=== PATIENT | female | born 1995 | race Caucasian/White ===

== ENCOUNTER 2017-11-19 22:30 | Emergency (ER) | payer MEDICAID, OTHER | END 2017-11-20 02:16 | disposition home or self-care (01) | LOC: FTE 22:30 | DX: J20.9 Acute bronchitis, unspecified (principal); R06.02 Shortness of breath | CPT/HCPCS: 71045; 93005; 99284-25 ==

== ENCOUNTER 2017-11-24 19:12 | Emergency (ER) | payer MEDICAID | END 2017-11-24 21:58 | disposition home or self-care (01) | LOC: FTE 19:12 | DX: J20.9 Acute bronchitis, unspecified (principal); F17.210 Nicotine dependence, cigarettes, uncomplicated | CPT/HCPCS: 99283; Z7502 ==